=== PATIENT | female | born 1965 | race Caucasian/White ===

== ENCOUNTER → 2020-04-03 | Outpatient (CLI) | payer OTHER ==
[~2020-04-03] MED LIST: ABILIFY10 MG PO; ASPIRIN EC81 MG PO; ATORVASTATIN CA80 MG PO; CILOSTAZOL100 MG PO; CLOPIDOGREL75 MG PO; PLETAL 100 MG100 MG PO; SERTRALINE HCL100 MG PO
[2020-04-03 10:50] LABS: HEMOGLOBIN 15.8 gm/dl (12.3-15.3); RED BLOOD COUNT 4.54 M/UL (4.00-5.10); WHITE BLOOD COUNT 7.4 K/UL (4.5-11.0)
[2020-04-03 11:08] LABS: BUN/CREATININE RATIO 24 (0-10)
== END ==
LOC: OPSV2 09:59
PROVIDERS: Surgery
DX: Z11.52 Encounter for screening for COVID-19 (principal); J84.9 Interstitial pulmonary disease, unspecified
CPT/HCPCS: 36415; 71046; 80053; 81001; 85025; 85610; 85730; 86850; 86900; 86901; 93005

== ENCOUNTER 2020-04-25 05:55 | Inpatient (IN) | payer OTHER ==
[~2020-04-25] VITALS: Ht 152.4 cm; Wt 61.2 kg
[2020-04-25 07:31] LABS: HEMOGLOBIN 14.7 gm/dl (12.3-15.3); RED BLOOD COUNT 4.42 M/UL (4.00-5.10); WHITE BLOOD COUNT 4.9 K/UL (4.5-11.0)
[2020-04-25 07:43] LABS: BUN/CREATININE RATIO 34 (0-10)
[2020-04-25 12:00] LABS: HEMOGLOBIN 11.6 gm/dl (12.3-15.3)
[2020-04-25 14:05] LABS: HEMOGLOBIN 10.8 gm/dl (12.3-15.3)
[2020-04-25 14:08] LABS: RED BLOOD COUNT 3.19 M/UL (4.00-5.10); WHITE BLOOD COUNT 11.1 K/UL (4.5-11.0)
[2020-04-25 14:28] LABS: BUN/CREATININE RATIO 29 (0-10)
== END 2020-04-26 14:53 | disposition home or self-care (01) | DRG 268 ==
LOC: ZOBSOF 05:55 → CCU 05:55
PROVIDERS: ADMIT Surgery
PROC: 04V03DZ Restriction of Abdominal Aorta with Intraluminal Device, Percutaneous Approach (ICD-10-PCS; 2020-04-25)
PROC: 047D3ZZ Dilation of Left Common Iliac Artery, Percutaneous Approach (ICD-10-PCS; 2020-04-25)
PROC: 047C3ZZ Dilation of Right Common Iliac Artery, Percutaneous Approach (ICD-10-PCS; 2020-04-25)
PROC: 04FD3ZZ Fragmentation of Left Common Iliac Artery, Percutaneous Approach (ICD-10-PCS; 2020-04-25)
PROC: 04FC3ZZ Fragmentation of Right Common Iliac Artery, Percutaneous Approach (ICD-10-PCS; 2020-04-25)
PROC: 047D35Z Dilation of Left Common Iliac Artery with Two Drug-eluting Intraluminal Devices, Percutaneous Approach (ICD-10-PCS; 2020-04-25)
PROC: 047 Lower Arteries, Dilation (ICD-10-PCS; 2020-04-25)
PROC: B41DYZZ Fluoroscopy of Aorta and Bilateral Lower Extremity Arteries using Other Contrast (ICD-10-PCS; principal; 2020-04-25 07:30)
DX: I74.10 Embolism and thrombosis of unspecified parts of aorta (principal); I71.02 Dissection of abdominal aorta; I74.5 Embolism and thrombosis of iliac artery; I77.1 Stricture of artery; I70.203 Unspecified atherosclerosis of native arteries of extremities, bilateral legs; I35.0 Nonrheumatic aortic (valve) stenosis; Z20.822 Contact with and (suspected) exposure to COVID-19
CPT/HCPCS: 71045; 75630; 80053; 81001; 85014; 85018; 85025; 85610; 85730; 86850; 86900; 86901; 86920; 93005; C1753; C1769; C1773; C1874; C1876; C1887; C1892; C1894; J0690; J1644; J2001; J2370; J2704; J2710; J3010; J7030; J7040; J7050; J7120; P9045; Q9962